=== PATIENT | male | born 1945 | race Caucasian/White ===

== ENCOUNTER → 2017-03-07 | Outpatient (CLI) | payer MEDICARE, OTHER ==
--- NOTE | 2017-03-07 11:32 | PCVCIMAG ---
EXAM: AORTOILIAC DUPLEX INDICATION: Peripheral arterial disease FINDINGS: AORTA: Suprarenal aorta measures maximum diameter of 2.8 cm. There is a fusiform infrarenal aortic aneurysm. The infrarenal aorta measures maximum diameter of 2.8 x 3.3 cm. No aortic stenosis. RIGHT COMMON ILIAC ARTERY: Maximum diameter is 2.3 x 2.4 cm. No significant stenosis. RIGHT EXTERNAL ILIAC ARTERY: No significant stenosis. LEFT COMMON ILIAC ARTERY: Maximum diameter is 1.2 cm. No significant stenosis. LEFT EXTERNAL ILIAC ARTERY: No significant stenosis. IMPRESSION: 3.3 cm infrarenal abdominal aortic aneurysm. 2.4 cm right common iliac artery aneurysm. LOC:[id number]
--- NOTE | 2017-03-07 12:04 | PCVCIMAG ---
APPROVED REPORT Exam: Stress Echocardiogram Indication: CAD s/p CABG Stress Nurse: Barbara King RN Status: routine Ht: 5 ft 11 in HR: 78 bpm Rhythm: RBBB Medical History Medical History: CAD s/p CABG Procedure The patient underwent an Exercise Stress Test using the Bandar Protocol. Blood pressure, heart rate, and EKG were monitored. An Echocardiogram was performed by senior engineering technician in four stages in quad fashion. At peak stress, four selected images were obtained and placed side by side with resting images for comparison. Stress Test Details Stress Test: Exercise stress testing was performed using a Bandar protocol. HR Resting HR: 78 bpmMax Heart Rate (APMHR): 150 bpm Max HR Achieved: 160 bpmTarget HR (85% APMHR): 127 bpm % of APMHR: 106 HR response to stress: Normal HR response to stress BP Resting BP: 142/64 mmHg Max BP: 190/64 mmHg ECG Resting ECG: RBBB Stress ECG: RBBB Clinical Reason for Termination: Leg pain Exercise duration: 6 min sec Highest Stage Achieved: Stage 2: 2.5 mph at 12% grade. Exercise capacity: 7.00 METs Pre-Stress Echo The resting Echocardiogram showed left ventricular contractility with an estimated Ejection Fraction of about 50%. The resting Echocardiogram demonstrated wall motion abnormality in the 0 . Distal septal akinesis. Inferior akinesis. Post-Stress Echo The stress Echocardiogram showed left ventricular contractility with an estimated Ejection Fraction of about 50%. Distal septal akinesis. Inferior akinesis. No new regional wall motion abnormality.. Conclusion Clinical Response: Non-ischemic Exercise Capacity: Below Average Stress ECG Response: Non-ischemic Stress Echo Images: Non-ischemic Other Information Study Quality: Good
== END | disposition home or self-care (01) ==
LOC: PCVCIMAG 09:38
PROVIDERS: ATTEND Internal Medicine Cardiovascular Disease
DX: I25.10 Atherosclerotic heart disease of native coronary artery without angina pectoris (principal); E78.5 Hyperlipidemia, unspecified; I73.9 Peripheral vascular disease, unspecified; I71.4 Abdominal aortic aneurysm, without rupture; I72.3 Aneurysm of iliac artery; I25.5 Ischemic cardiomyopathy; I45.10 Unspecified right bundle-branch block; Z95.1 Presence of aortocoronary bypass graft
CPT/HCPCS: 80061; 93325; 93351; 93978

== ENCOUNTER → 2017-12-19 | Outpatient (CLI) | payer MEDICARE, OTHER | END | disposition home or self-care (01) | LOC: PCVCCLINIC 13:17 | PROVIDERS: ATTEND Internal Medicine Cardiovascular Disease | DX: I25.10 Atherosclerotic heart disease of native coronary artery without angina pectoris (principal); I10 Essential (primary) hypertension; I73.9 Peripheral vascular disease, unspecified; E78.5 Hyperlipidemia, unspecified; I25.5 Ischemic cardiomyopathy; R09.89 Other specified symptoms and signs involving the circulatory and respiratory systems; F17.200 Nicotine dependence, unspecified, uncomplicated; Z88.8 Allergy status to other drugs, medicaments and biological substances; Z79.899 Other long term (current) drug therapy; Z79.82 Long term (current) use of aspirin | CPT/HCPCS: 80061; 93005; G0463 ==

== ENCOUNTER → 2018-06-28 | Outpatient (CLI) | payer MEDICARE, OTHER ==
--- NOTE | 2018-06-28 17:06 | PCVCIMAG ---
EXAM: AORTOILIAC DUPLEX INDICATION: Abdominal aortic aneurysm. FINDINGS: AORTA: Suprarenal aorta measures maximum diameter of 2.6 cm. There is a fusiform infrarenal aortic aneurysm. The infrarenal aorta measures maximum diameter of 3.2 cm. No aortic stenosis. RIGHT COMMON ILIAC ARTERY: Maximum diameter is 2.7 cm. No significant stenosis. RIGHT EXTERNAL ILIAC ARTERY: No significant stenosis. LEFT COMMON ILIAC ARTERY: Maximum diameter is 1.4 cm. No significant stenosis. LEFT EXTERNAL ILIAC ARTERY: No significant stenosis. IMPRESSION: 3.2 cm infrarenal abdominal aortic aneurysm unchanged since February 2017 study. 2.7 cm mid/distal right common iliac artery aneurysm compares to 2.4 cm on prior study. LOC:[id number]
== END | disposition home or self-care (01) ==
LOC: PCVCIMAG 12:54
PROVIDERS: ATTEND Internal Medicine Cardiovascular Disease
DX: I71.4 Abdominal aortic aneurysm, without rupture (principal); I25.10 Atherosclerotic heart disease of native coronary artery without angina pectoris; I10 Essential (primary) hypertension; I25.5 Ischemic cardiomyopathy; I73.9 Peripheral vascular disease, unspecified; I45.10 Unspecified right bundle-branch block; E78.00 Pure hypercholesterolemia, unspecified; F17.210 Nicotine dependence, cigarettes, uncomplicated; Z79.82 Long term (current) use of aspirin
CPT/HCPCS: 36415; 80061; 93005; 93978; G0463

== ENCOUNTER → 2018-07-14 | Outpatient (CLI) | payer MEDICARE, OTHER ==
--- NOTE | 2018-07-14 14:16 | PCVCIMAG ---
EXAM: BILATERAL CAROTID DUPLEX INDICATION: Carotid Occlusive Disease. FINDINGS: Doppler Measurements (centimeters per second): RIGHT: Peak CCA-69, Peak ECA-92, Diastolic ICA-28, Peak ICA-109, ICA/CCA Ratio-1.6. LEFT: Peak CCA-86, Peak ECA-84, Diastolic ICA-28, Peak ICA-101, ICA/CCA Ratio-1.2. RIGHT CAROTID: The carotid bulb has moderate plaque. The proximal internal carotid artery shows <40% stenosis. The common carotid artery shows no significant stenosis. The external carotid artery shows no significant stenosis. LEFT CAROTID: The carotid bulb has moderate plaque. The proximal internal carotid artery shows <40% stenosis. The common carotid artery shows no significant stenosis. The external carotid artery shows no significant stenosis. Antegrade flow in both vertebral arteries. IMPRESSION: <40% stenosis of the right internal carotid artery with moderate plaque. <40% stenosis of the left internal carotid artery with moderate plaque. LOC:[place] [id number]
--- NOTE | 2018-07-14 15:44 | PCVCIMAG ---
APPROVED REPORT Study performed: 07/14/2018 10:47:33 Exam: Stress Echocardiogram Indication: CAD s/p CABG, , Cardiomyopathy Patient Location: Echo lab Stress Nurse: Marilee Martinez RN Room #: 2 Status: routine Ht: 5 ft 11 in HR: 72 bpm BP: 148/68 mmHg Rhythm: RBBB Medical History Medical History: CAD s/p CABG, HTN, Cardiomyopathy Cardiac Risk Factors: HTN, Hyperlipidemia, Tobacco History (Current/Recent) Previous Cardiac Procedures: CABG Pretest Chest Pain Characteristics: No chest pain Exercise History: Sedentary Procedure The patient underwent an Exercise Stress Test using the Isael Protocol. Blood pressure, heart rate, and EKG were monitored. An Echocardiogram was performed by highway engineering technician in four stages in quad fashion. At peak stress, four selected images were obtained and placed side by side with resting images for comparison. Stress Test Details Stress Test: Exercise stress testing was performed using a Isael protocol. HR Resting HR: 72 bpmMax Heart Rate (APMHR): 148 bpm Max HR Achieved: 153 bpmTarget HR (85% APMHR): 125 bpm % of APMHR: 103 Recovery HR: 83 bpm HR response to stress: Normal HR response to stress BP Resting BP: 148/68 mmHg Max BP: 200/80 mmHg Recovery BP: 164/74 mmHg BP response to stress: Abnormal hypertensive response to stress.BP meds were held. ECG Resting ECG: RBBB Stress ECG: Sinus Rhythm, RBBB/ at peak bifascicular block ST Change: Strongly positive Maximum ST Deviation: -3.45 mm Arrhythmia: occasional PVCs Recovery ECG: Bifascicular block Recovery ST Change: Ischemic Recovery ST Deviation: -1.9 mm Clinical Reason for Termination: Leg pain/Claudication Stress Symptoms: Leg Fatigue/cramping Exercise duration: 5 min 00 sec Highest Stage Achieved: Stage 2: 2.5 mph at 12% grade. Exercise capacity: 7.0 METs Overall Exercise Capacity for Age: Poor Scale: Sedentary Angina Score: None No complications. Stress ECG Conclusion The patient exercised according to the ISAEL protocol for 5:00 mins; achieving a work level of 7.0 METS. The resting heart rate of 72 bpm shai to a maximum heart rate of 153 bpm. This value represents 103 % of the maximal, age-predicted heart rate. The resting blood pressure of 148/68 mmHg, shai to a maximum blood pressure of 200/80 mmHg. The exercise test was stopped due to leg pain,fatigue. Conn Treadmill Score is 22.3 which is Low risk. Pre-Stress Echo The resting Echocardiogram showed abnormal left ventricular contractility with an estimated Ejection Fraction of about 45-50%. Global hypokinesis is seen. Distal septal wall motion is equivical. Post-Stress Echo The stress Echocardiogram showed abnormal left ventricular contractility with an estimated Ejection Fraction of about 40-45%. Global hypokinesis was more pronounced. Distal septal,anterior and apex have decreased function post exercise. Conclusion Clinical Response: Equivocal Exercise Capacity: Below Average Stress ECG Response: Ischemic Stress Echo Images: Ischemic Positive stress echo test. <Conclusion> Positive stress echo test.
== END | disposition home or self-care (01) ==
LOC: PCVCIMAG 08:24
PROVIDERS: ATTEND Internal Medicine Cardiovascular Disease
DX: I65.23 Occlusion and stenosis of bilateral carotid arteries (principal); I25.10 Atherosclerotic heart disease of native coronary artery without angina pectoris; I42.9 Cardiomyopathy, unspecified; R94.39 Abnormal result of other cardiovascular function study; R07.9 Chest pain, unspecified; R06.02 Shortness of breath; E78.00 Pure hypercholesterolemia, unspecified; I10 Essential (primary) hypertension; Z95.1 Presence of aortocoronary bypass graft; Z79.82 Long term (current) use of aspirin
CPT/HCPCS: 93325; 93351; 93880; G0463

== ENCOUNTER → 2019-03-14 | Outpatient (CLI) | payer MEDICARE, OTHER | END | disposition home or self-care (01) | LOC: PCVCCLINIC 14:21 | PROVIDERS: ATTEND Internal Medicine Cardiovascular Disease | DX: I25.10 Atherosclerotic heart disease of native coronary artery without angina pectoris (principal); E78.00 Pure hypercholesterolemia, unspecified; R94.31 Abnormal electrocardiogram [ECG] [EKG]; I45.10 Unspecified right bundle-branch block; I25.5 Ischemic cardiomyopathy; I73.9 Peripheral vascular disease, unspecified; I65.23 Occlusion and stenosis of bilateral carotid arteries; I71.4 Abdominal aortic aneurysm, without rupture; I72.3 Aneurysm of iliac artery; I10 Essential (primary) hypertension; Z95.1 Presence of aortocoronary bypass graft; Z90.79 Acquired absence of other genital organ(s); F17.210 Nicotine dependence, cigarettes, uncomplicated; Z72.89 Other problems related to lifestyle; Z88.8 Allergy status to other drugs, medicaments and biological substances; Z79.82 Long term (current) use of aspirin | CPT/HCPCS: 36415; 80061; 93005; G0463 ==